=== PATIENT | female | born 1945 | race Caucasian/White ===

== ENCOUNTER 2024-04-12 20:10 | Emergency (ER) | payer MEDICARE, BC ==
[~2024-04-12] VITALS: Ht 160 cm; Wt 57.8 kg
[2024-04-12 20:10] VITALS: BP 166/82; PULSE 78; RESP 18; TEMP 97.3; O2SAT 96
[~2024-04-12 20:10] MED LIST: GLYC1MED64 TOP; ONDA8TAB9 PO
== END 2024-04-12 23:04 | disposition home or self-care (01) ==
LOC: ER 20:10
DX: M79.662 Pain in left lower leg (principal); Z88.0 Allergy status to penicillin; Z88.1 Allergy status to other antibiotic agents
CPT/HCPCS: 93970; 93971; 99284